=== PATIENT | female | born 1955 | race Caucasian/White ===

== ENCOUNTER → 2018-04-27 | Emergency (ER) | payer MEDICARE, OTHER ==
[~2018-04-27] VITALS: Ht 149.9 cm; Wt 63.5 kg
[~2018-04-27] MED LIST: ALLEGRA-D 24 H1 EACH PO; AMBIEN10 MG PO; AMOX TR-K CLV1 EAC1 PO; CIPRO500 MG PO; FLAGYL500 MG PO; MICONAZOLE 3 K1 EACH VG
== END ==
LOC: ED 10:03
DX: K57.32 Diverticulitis of large intestine without perforation or abscess without bleeding (principal); I10 Essential (primary) hypertension; I25.2 Old myocardial infarction; F17.200 Nicotine dependence, unspecified, uncomplicated; Z88.5 Allergy status to narcotic agent; Z91.038 Other insect allergy status; Z91.030 Bee allergy status
CPT/HCPCS: 74177; 80053; 81001; 85025; 96360; 99284; J7120; Q9967

== ENCOUNTER 2022-07-31 11:22 | Inpatient (IN) | payer MEDICARE, OTHER ==
[~2022-07-31] VITALS: Ht 149.9 cm; Wt 73.9 kg
--- OUTSIDE RECORDS SUMMARY | 2022-07-31 11:30 | XMS ---
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 [facility]zy has no Care Guidelines for this patient. [facility] MO[facility] NOTE: Visits indicate total known visits. ED/UCC VISIT TRACKING (12 MO.) [facility] COMPLAINT: - BLOOD IN STOOL 07/19/2022 11:[address] [facility] [place] TYPE: Emergency COMPLAINT: - SWOLLEN ABDOMEN DIAGNOSES: - Unspecified cirrhosis of liver - Old myocardial infarction - Bee allergy status - Nicotine dependence, unspecified, uncomplicated - Nontraumatic hematoma of soft tissue - Other ascites - Essential (primary) hypertension - Atherosclerotic heart disease of [place] coronary artery without angina pectoris - Allergy status to narcotic agent INPATIENT VISIT TRACKING (12 MO.) No inpatient visits to display in this time frame [email or web address]
[2022-08-01] MEDS ORDERED: CIPROFLOXACIN500 MG PO (08:16)
[2022-08-01] MEDS ORDERED: OMEPRAZOLE40 MG PO (08:16)
== END 2022-08-01 10:55 | disposition home or self-care (01) | DRG 432 ==
LOC: ED 11:22 → MS 16:02
PROVIDERS: ADMIT Internal Medicine; ATTEND Internal Medicine
PROC: 0W9G3ZZ Drainage of Peritoneal Cavity, Percutaneous Approach (ICD-10-PCS; principal; 2022-07-31)
DX: K74.60 Unspecified cirrhosis of liver (principal); I85.11 Secondary esophageal varices with bleeding; D62 Acute posthemorrhagic anemia; D68.9 Coagulation defect, unspecified; R18.8 Other ascites; C22.9 Malignant neoplasm of liver, not specified as primary or secondary; B18.2 Chronic viral hepatitis C; Z20.822 Contact with and (suspected) exposure to COVID-19; I25.10 Atherosclerotic heart disease of native coronary artery without angina pectoris; J44.9 Chronic obstructive pulmonary disease, unspecified; F17.210 Nicotine dependence, cigarettes, uncomplicated; I25.2 Old myocardial infarction; Z92.21 Personal history of antineoplastic chemotherapy; Z98.84 Bariatric surgery status; Z90.710 Acquired absence of both cervix and uterus; Z98.890 Other specified postprocedural states; Z88.5 Allergy status to narcotic agent; Z91.038 Other insect allergy status; Z91.030 Bee allergy status; Z79.2 Long term (current) use of antibiotics; Z79.899 Other long term (current) drug therapy
CPT/HCPCS: 36415; 49083; 80048; 80053; 81001; 82140; 82247; 82945; 83605; 83690; 83735; 84157; 85025; 85610; 86850; 86900; 86901; 87070; 87205; 87502; 89051; 99285-25; C9113; C9803; J0696; J2060; J2270; J3475; U0003

== ENCOUNTER 2022-09-04 15:33 | Emergency (ER) | payer MEDICARE, OTHER ==
[~2022-09-04] VITALS: Ht 149.9 cm; Wt 77.5 kg
[~2022-09-04 15:33] MED LIST changes: +CIPROFLOXACIN500 MG PO; +OMEPRAZOLE40 MG PO
--- OUTSIDE RECORDS SUMMARY | 2022-09-04 15:36 | XMS ---
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 Breezy has no Care Guidelines for this patient. Patricia VISIT COUNT (12 MO.) 3 [facility] TOTAL 3 NOTE: Visits indicate total known visits. ED/UCC VISIT TRACKING (12 MO.) 09/04/2022 15:33 [facility] [place] TYPE: Emergency COMPLAINT: - ABD PRESSURE 07/31/2022 11:22 [facility] [place] TYPE: Emergency COMPLAINT: - BLOOD IN STOOL 07/19/2022 11:09 [facility] [place] TYPE: Emergency COMPLAINT: - SWOLLEN ABDOMEN DIAGNOSES: - Atherosclerotic heart disease of [place] coronary artery without angina pectoris - Allergy status to narcotic agent - Unspecified cirrhosis of liver - Old myocardial infarction - Bee allergy status - Nicotine dependence, unspecified, uncomplicated - Nontraumatic hematoma of soft tissue - Other ascites - Essential (primary) hypertension INPATIENT VISIT TRACKING (12 MO.) 07/31/2022 16:02 [facility] [place] TYPE: Medical Surgical COMPLAINT: - GI BLEED LOSS,ABDOMINAL PAIN,ASCITES DIAGNOSES: - Acquired absence of both cervix and uterus - Unspecified cirrhosis of liver - Atherosclerotic heart disease of [place] coronary artery without angina pectoris - Chronic viral hepatitis C - Contact with and (suspected) exposure to COVID-19 - Coagulation defect, unspecified - Unspecified cirrhosis of liver - 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 - Other specified postprocedural states - Bee allergy status - Nicotine dependence, cigarettes, uncomplicated - Bariatric surgery status - Secondary esophageal varices with bleeding - Other specified postprocedural states - Other insect allergy status - Acute posthemorrhagic anemia - Coagulation defect, unspecified - Bee allergy status - Gastrointestinal hemorrhage, unspecified - Chronic viral hepatitis C - Malignant neoplasm of liver, not specified as primary or secondary - Other ascites - Contact with and (suspected) exposure to COVID-19 - Acquired absence of both cervix and uterus - 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 - Nicotine dependence, cigarettes, uncomplicated - 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 - Old myocardial infarction - Chronic obstructive pulmonary disease, unspecified - Allergy status to narcotic agent - Secondary esophageal varices with bleeding - Acute posthemorrhagic anemia - Other insect allergy status - Personal history of antineoplastic chemotherapy - Atherosclerotic heart disease of [place] coronary artery without angina pectoris - Personal history of antineoplastic chemotherapy - Chronic obstructive pulmonary disease, unspecified - Bariatric surgery status - Other ascites - Allergy status to narcotic agent - Other care home (current) drug therapy - Old myocardial infarction - Malignant neoplasm of liver, not specified as primary or secondary [email or web address]
[2022-09-04] MEDS ORDERED: SPIRONOLACTONE50 MG PO (15:46)
[2022-09-04] MEDS ORDERED: HYDROCODON-ACE1 EA11 PO (15:46)
[2022-09-04] MEDS ORDERED: FUROSEMIDE20 MG PO (15:46)
[2022-09-04] MEDS ORDERED: MAGNESIUM OXID400 M1 PO (15:46)
== END 2022-09-04 19:47 | disposition home or self-care (01) ==
LOC: ED 15:33
DX: R18.8 Other ascites (principal); I10 Essential (primary) hypertension; I25.2 Old myocardial infarction; I25.10 Atherosclerotic heart disease of native coronary artery without angina pectoris; J44.9 Chronic obstructive pulmonary disease, unspecified; F17.200 Nicotine dependence, unspecified, uncomplicated; Z88.5 Allergy status to narcotic agent; Z91.030 Bee allergy status; Z79.899 Other long term (current) drug therapy; Z79.891 Long term (current) use of opiate analgesic
CPT/HCPCS: 36415; 49083; 80053; 81001; 83690; 83735; 85025; 99284-25

== ENCOUNTER 2022-10-06 15:50 | Emergency (ER) | payer MEDICARE, OTHER ==
[~2022-10-06] VITALS: Ht 149.9 cm; Wt 77.5 kg
[~2022-10-06 15:50] MED LIST changes: +FUROSEMIDE20 MG PO; +HYDROCODON-ACE1 EA11 PO; +MAGNESIUM OXID400 M1 PO; +SPIRONOLACTONE50 MG PO
--- OUTSIDE RECORDS SUMMARY | 2022-10-06 15:52 | XMS ---
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 Breezy has no Care Guidelines for this patient. Patricia VISIT COUNT (12 MO.) 4 [facility] TOTAL 4 NOTE: Visits indicate total known visits. 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 [place] TYPE: Medical Surgical COMPLAINT: - GI BLEED LOSS,ABDOMINAL PAIN,ASCITES DIAGNOSES: - Bee allergy status - Other specified postprocedural states - Secondary esophageal varices with bleeding - Nicotine dependence, cigarettes, uncomplicated - Bariatric surgery status - Acute posthemorrhagic anemia - Other specified postprocedural states - Other insect allergy status - Gastrointestinal hemorrhage, unspecified - Coagulation defect, unspecified - Bee allergy status - Other ascites - Chronic viral hepatitis C - Malignant neoplasm of liver, not specified as primary or secondary - Acquired absence of both cervix and uterus - Contact with and (suspected) exposure to COVID-19 - 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 - 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 - Nicotine dependence, cigarettes, uncomplicated - Chronic obstructive pulmonary disease, unspecified - Old myocardial infarction - Acute posthemorrhagic anemia - Allergy status to narcotic agent - Secondary esophageal varices with bleeding - Other insect allergy status - Personal history of antineoplastic chemotherapy - Chronic obstructive pulmonary disease, unspecified - Atherosclerotic heart disease of [place] coronary artery without angina pectoris - Personal history of antineoplastic chemotherapy - Allergy status to narcotic agent - Bariatric surgery status - Other ascites - Malignant neoplasm of liver, not specified as primary or secondary - 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
[2022-10-07] MEDS ORDERED: OFLOXACIN400 MG PO (04:40)
== END 2022-10-07 05:21 | disposition home or self-care (01) ==
LOC: ED 15:50
DX: R18.8 Other ascites (principal); K65.2 Spontaneous bacterial peritonitis; I25.10 Atherosclerotic heart disease of native coronary artery without angina pectoris; I10 Essential (primary) hypertension; J44.9 Chronic obstructive pulmonary disease, unspecified; F17.200 Nicotine dependence, unspecified, uncomplicated; Z91.030 Bee allergy status; Z88.5 Allergy status to narcotic agent; Z79.899 Other long term (current) drug therapy
CPT/HCPCS: 36415; 49082; 80053; 81003; 82040; 83615; 83690; 85025; 85610; 89051; 99284-25; A9270; J0694; P9047

== ENCOUNTER 2022-10-30 13:51 | Emergency (ER) | payer MEDICARE, OTHER ==
[~2022-10-30] VITALS: Ht 149.9 cm; Wt 77.5 kg
[~2022-10-30 13:51] MED LIST changes: +OFLOXACIN400 MG PO
--- OUTSIDE RECORDS SUMMARY | 2022-10-30 13:54 | XMS ---
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 Breezy has no Care Guidelines for this patient. Patricia VISIT COUNT (12 MO.) [address] [facility] TOTAL 5 NOTE: Visits indicate total known visits. ED/UCC VISIT TRACKING (12 MO.) 10/30/2022 13:51 [facility] [place] TYPE: Emergency COMPLAINT: - SHORTNESS OF BREATH, VOMITING BLOOD 10/06/2022 15:50 [facility] [place] TYPE: Emergency COMPLAINT: - DIFF BREATHING DIAGNOSES: - Bee allergy status - Essential (primary) hypertension - Other ascites - Chronic obstructive pulmonary disease, unspecified - Spontaneous bacterial peritonitis - Other usp (current) drug therapy - Atherosclerotic heart disease of [place] coronary artery without angina pectoris - Allergy status to narcotic agent - Nicotine dependence, unspecified, uncomplicated 09/04/2022 15:33 [facility] [place] TYPE: Emergency COMPLAINT: - ABD PRESSURE DIAGNOSES: - Nicotine dependence, unspecified, uncomplicated - Other usp (current) drug therapy - Old myocardial infarction - Unspecified abdominal pain - Bee allergy status - 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 - Atherosclerotic heart disease of [place] coronary artery without angina pectoris - Essential (primary) hypertension - Allergy status to narcotic agent - Chronic obstructive pulmonary disease, unspecified - Other ascites 07/31/2022 11:22 [facility] [place] TYPE: Emergency COMPLAINT: - BLOOD IN STOOL 07/19/2022 11:09 [facility] [place] TYPE: Emergency COMPLAINT: - SWOLLEN ABDOMEN DIAGNOSES: - Nontraumatic hematoma of soft tissue - Other ascites - Essential (primary) hypertension - Atherosclerotic heart disease of [place] coronary artery without angina pectoris - Allergy status to narcotic agent - Unspecified cirrhosis of liver - Old myocardial infarction - Bee allergy status - Nicotine dependence, unspecified, uncomplicated INPATIENT VISIT TRACKING (12 MO.) 07/31/2022 16:02 [facility] [place] TYPE: Medical Surgical COMPLAINT: - GI BLEED LOSS,ABDOMINAL PAIN,ASCITES DIAGNOSES: - Acute posthemorrhagic anemia - Allergy status to narcotic agent - Secondary esophageal varices with bleeding - Personal history of antineoplastic chemotherapy - Other insect allergy status - Chronic obstructive pulmonary disease, unspecified - Atherosclerotic heart disease of [place] coronary artery without angina pectoris - Personal history of antineoplastic chemotherapy - Other ascites - Allergy status to narcotic agent - Bariatric surgery status - Malignant neoplasm of liver, not specified as primary or secondary - Other usp (current) drug therapy - Old myocardial infarction - Atherosclerotic heart disease of [place] coronary artery without angina pectoris - Acquired absence of both cervix and uterus - Unspecified cirrhosis of liver - Contact with and (suspected) exposure to COVID-19 - Chronic viral hepatitis C - 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 - Coagulation defect, unspecified - Unspecified cirrhosis of liver - Bee allergy status - Other specified postprocedural states - Secondary esophageal varices with bleeding - Nicotine dependence, cigarettes, uncomplicated - Bariatric surgery status - Other insect allergy status - Acute posthemorrhagic anemia - Other specified postprocedural states - Gastrointestinal hemorrhage, unspecified - Coagulation defect, unspecified - Bee allergy status - Other ascites - Chronic viral hepatitis C - Malignant neoplasm of liver, not specified as primary or secondary - Acquired absence of both cervix and uterus - Contact with and (suspected) exposure to COVID-19 - 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
[2022-10-30] MEDS ORDERED: METHYLPREDNISOLO4 M1 PO (14:18)
[2022-10-30] MEDS ORDERED: GABAPENTIN300 MG PO (14:18)
--- NOTE | 2022-11-01 06:50 | EKG ---
[facility] [address] [place], [place] [address] Signed Sinus tachycardia Low voltage QRS Inferior infarct , age undetermined Cannot rule out Anterior infarct , age undetermined Abnormal ECG No previous ECGs available Confirmed by LOGAN PATINO MD ([id number] on 11/01/2022 6:49:46 AM Electronically Signed By: LOGAN PATINO MD 11/01/22 0650 PATIENT NAME: GAVIRIASUJATA Electrocardiogram DATE OF : 59 PHYSICIAN: LOGAN PATINO MD REPORT #: [id number] REPORT IS CONFIDENTIAL AND NOT TO BE RELEASED WITHOUT AUTHORIZATION
== END 2022-10-30 20:52 ==
LOC: ED 13:51
DX: R57.8 Other shock (principal); K92.2 Gastrointestinal hemorrhage, unspecified; K74.60 Unspecified cirrhosis of liver; I10 Essential (primary) hypertension; I25.10 Atherosclerotic heart disease of native coronary artery without angina pectoris; J44.9 Chronic obstructive pulmonary disease, unspecified; F17.200 Nicotine dependence, unspecified, uncomplicated; Z20.822 Contact with and (suspected) exposure to COVID-19; Z88.5 Allergy status to narcotic agent; Z91.030 Bee allergy status; Z79.899 Other long term (current) drug therapy
CPT/HCPCS: 31500; 36415; 36600; 71045; 80048; 80053; 82140; 82803; 83735; 84484; 85025; 85610; 85730; 86850; 86900; 86901; 86922; 87502; 93005; 93010; 94002; 94640; 99285-25; C9113; J2060; J2354-JA; J3430; J7050; J7070; J7168; P9016; P9059; U0003